=== PATIENT | male | born 1940 | race Caucasian/White ===

== ENCOUNTER 2017-10-06 11:27 | Inpatient (IN) | payer OTHER, MEDICARE ==
[~2017-10-06] VITALS: Ht 188 cm; Wt 98.2 kg
[2017-10-06 11:33] VITALS: Ht 188 cm; Wt 98.2 kg
[2017-10-06 12:36] LABS: PLATELET COUNT 222 x10^3mcL (130-400)
[2017-10-06 12:58] LABS: RED CELL DISTRIBUTION WIDTH 17.3 % (11.5-14.5)
[2017-10-06 13:02] LABS: T3 TOTAL 0.76 ng/mL
[2017-10-06 13:08] LABS: BAND NEUTROPHIL 17 % (0-10); BASOPHIL 0 % (0-2); MONOCYTE 3 % (0-7); PLATELET MORPHOLOGY PLATELETS NORMAL; SEGMENTED NEUTROPHILS 61 % (37-75); ovalocyte/elliptocyte 1+; rbc morphology (normal/abnorm) ABNORMAL (NORMAL); tear drop cell (dacryocyte) 1+
[2017-10-06 13:10] LABS: ERYTHROCYTE SED RATE 61 mm/hr (0-20)
[2017-10-06 13:19] LABS: CALCIUM 8.9 mg/dL (8.5-10.1); CARBON DIOXIDE 30.4 mmol/L (21-32); CHLORIDE SERUM 94 mmol/L (98-107); CREATININE SERUM 1.9 mg/dL (0.7-1.3); GLUCOSE SERUM 128 mg/dL (74-106); POTASSIUM SERUM 3.5 mmol/L (3.5-5.1); SODIUM SERUM 130 mmol/L (136-145)
[2017-10-06 13:24] LABS: FREE T4 1.28 ng/dL (0.76-1.46); FREE THYROXINE INDEX 2.7 ug/dL (1.4-4.5); T4(THYROXINE) 7.8 ug/dL (4.7-13.3)
[2017-10-06 13:26] LABS: ALKALINE PHOSPHATASE 237 U/L (46-116); ALT/SGPT 67 U/L (16-63); AST/SGOT 60 U/L (15-37); BILIRUBIN TOTAL 8.75 mg/dL (0.20-1.00); CK-MB < 0.5 ng/mL (0-3.6); CREATINE KINASE 28 U/L (39-308); TOTAL PROTEIN, SERUM 6.6 g/dL (6.4-8.2)
[2017-10-06 13:28] LABS: ALBUMIN 2.6 g/dL (3.4-5.0); C REACTIVE PROTEIN 15.4 mg/dL (<=0.9)
[2017-10-06 16:08] LABS: MAGNESIUM 2.4 mg/dL (1.8-2.4)
[2017-10-06 16:09] LABS: CHOLESTEROL/HDL RATIO 11.3
[2017-10-06 16:11] VITALS: BP 130/54
[2017-10-06 17:17] VITALS: BP 116/70
[2017-10-06 18:07] VITALS: BP 137/60
[2017-10-06 21:16] VITALS: BP 94/53
[2017-10-07 00:35] LABS: UA SPECIFIC GRAVITY 1.015 (1.005-1.035); microscopic required? YES; urine erythrocyte TRACE (NEGATIVE)
[2017-10-07 01:16] LABS: AMPHETAMINE QUAL UR NONE DETECTED (See below)
[2017-10-07 04:49] VITALS: BP 121/52
[2017-10-07 07:23] LABS: PLATELET COUNT 245 x10^3mcL (130-400)
[2017-10-07 07:33] LABS: RED CELL DISTRIBUTION WIDTH 18.3 % (11.5-14.5)
[2017-10-07 08:20] LABS: ALKALINE PHOSPHATASE 190 U/L (46-116); ALT/SGPT 48 U/L (16-63); AST/SGOT 40 U/L (15-37); BILIRUBIN DIRECT 7.78 mg/dL (0.0-0.2); BILIRUBIN TOTAL 9.44 mg/dL (0.20-1.00); CALCIUM 8.5 mg/dL (8.5-10.1); CARBON DIOXIDE 25.6 mmol/L (21-32); CHLORIDE SERUM 101 mmol/L (98-107); CREATININE SERUM 1.6 mg/dL (0.7-1.3); GLUCOSE SERUM 85 mg/dL (74-106); MAGNESIUM 2.4 mg/dL (1.8-2.4); PHOSPHOROUS 5.1 mg/dL (2.5-4.9); SODIUM SERUM 135 mmol/L (136-145)
[2017-10-07 08:30] LABS: BAND NEUTROPHIL 14 % (0-10); BASOPHIL 0 % (0-2); MONOCYTE 4 % (0-7); PLATELET MORPHOLOGY PLATELETS NORMAL; SEGMENTED NEUTROPHILS 65 % (37-75); ovalocyte/elliptocyte 1+; rbc morphology (normal/abnorm) ABNORMAL (NORMAL); tear drop cell (dacryocyte) 1+
[2017-10-07 08:34] VITALS: BP 147/67
[2017-10-07 08:35] LABS: ALBUMIN 1.9 g/dL (3.4-5.0); TOTAL PROTEIN, SERUM 5.5 g/dL (6.4-8.2)
[2017-10-07 16:36] VITALS: BP 133/66
[2017-10-07 19:37] VITALS: BP 130/58
[2017-10-08 05:00] VITALS: BP 133/62
[2017-10-08 05:42] LABS: PLATELET COUNT 261 x10^3mcL (130-400)
[2017-10-08 06:17] LABS: ALKALINE PHOSPHATASE 145 U/L (46-116); ALT/SGPT 29 U/L (16-63); AST/SGOT 28 U/L (15-37); BILIRUBIN DIRECT 3.72 mg/dL (0.0-0.2); BILIRUBIN TOTAL 4.5 mg/dL (0.20-1.00); CALCIUM 7.6 mg/dL (8.5-10.1); CARBON DIOXIDE 22.4 mmol/L (21-32); CHLORIDE SERUM 102 mmol/L (98-107); CREATININE SERUM 1.5 mg/dL (0.7-1.3); GLUCOSE SERUM 106 mg/dL (74-106); MAGNESIUM 2.3 mg/dL (1.8-2.4); PHOSPHOROUS 3.8 mg/dL (2.5-4.9); SODIUM SERUM 134 mmol/L (136-145)
[2017-10-08 06:26] LABS: ALBUMIN 1.5 g/dL (3.4-5.0)
[2017-10-08 07:26] LABS: RED CELL DISTRIBUTION WIDTH 18.6 % (11.5-14.5)
[2017-10-08 08:00] VITALS: BP 115/52
[2017-10-08 12:38] VITALS: BP 104/60
[2017-10-08 15:38] LABS: BAND NEUTROPHIL 14 % (0-10); MONOCYTE 1 % (0-7); SEGMENTED NEUTROPHILS 79 % (37-75); rbc morphology (normal/abnorm) ABNORMAL (NORMAL)
[2017-10-08 15:39] LABS: PLATELET MORPHOLOGY PLATELETS NORMAL
[2017-10-08 15:40] LABS: ERYTHROCYTE SED RATE 75 mm/hr (0-20)
[2017-10-08 16:29] VITALS: BP 102/71
[2017-10-08 16:31] VITALS: BP 121/64
[2017-10-08 21:16] VITALS: BP 121/67
[2017-10-09 05:57] VITALS: BP 142/62
[2017-10-09 06:14] LABS: PLATELET COUNT 277 x10^3mcL (130-400)
[2017-10-09 06:29] LABS: ALKALINE PHOSPHATASE 137 U/L (46-116); ALT/SGPT 29 U/L (16-63); AST/SGOT 32 U/L (15-37); BILIRUBIN DIRECT 2.07 mg/dL (0.0-0.2); BILIRUBIN TOTAL 2.94 mg/dL (0.20-1.00); CALCIUM 8.3 mg/dL (8.5-10.1); CARBON DIOXIDE 25.3 mmol/L (21-32); CHLORIDE SERUM 99 mmol/L (98-107); CREATININE SERUM 1.3 mg/dL (0.7-1.3); GLUCOSE SERUM 113 mg/dL (74-106); PHOSPHOROUS 2.6 mg/dL (2.5-4.9); POTASSIUM SERUM 3.7 mmol/L (3.5-5.1); SODIUM SERUM 132 mmol/L (136-145)
[2017-10-09 06:35] LABS: ALBUMIN 1.4 g/dL (3.4-5.0); TOTAL PROTEIN, SERUM 5.1 g/dL (6.4-8.2)
[2017-10-09 07:05] LABS: RED CELL DISTRIBUTION WIDTH 18.5 % (11.5-14.5)
[2017-10-09 08:07] LABS: ATYPICAL LYMPH 2 %; BAND NEUTROPHIL 5 % (0-10); BASOPHIL 0 % (0-2); MONOCYTE 1 % (0-7); SEGMENTED NEUTROPHILS 84 % (37-75)
[2017-10-09 08:08] LABS: PLATELET MORPHOLOGY PLATELETS NORMAL; rbc morphology (normal/abnorm) ABNORMAL (NORMAL)
[2017-10-09 08:14] VITALS: BP 137/80
[2017-10-09 12:15] VITALS: BP 132/62
[2017-10-09 16:17] VITALS: BP 127/66
[2017-10-09 21:22] VITALS: BP 124/62
[2017-10-10 06:15] VITALS: BP 146/61
[2017-10-10 06:51] LABS: PLATELET COUNT 307 x10^3mcL (130-400)
[2017-10-10 06:56] LABS: ALKALINE PHOSPHATASE 156 U/L (46-116); ALT/SGPT 38 U/L (16-63); AST/SGOT 47 U/L (15-37); BILIRUBIN DIRECT 2.03 mg/dL (0.0-0.2); BILIRUBIN TOTAL 2.75 mg/dL (0.20-1.00); CALCIUM 8.2 mg/dL (8.5-10.1); CARBON DIOXIDE 26.5 mmol/L (21-32); CHLORIDE SERUM 99 mmol/L (98-107); CREATININE SERUM 1.3 mg/dL (0.7-1.3); GLUCOSE SERUM 116 mg/dL (74-106); PHOSPHOROUS 3.1 mg/dL (2.5-4.9); POTASSIUM SERUM 3.4 mmol/L (3.5-5.1); SODIUM SERUM 133 mmol/L (136-145)
[2017-10-10 06:57] LABS: RED CELL DISTRIBUTION WIDTH 18.5 % (11.5-14.5)
[2017-10-10 07:01] LABS: ALBUMIN 1.5 g/dL (3.4-5.0); TOTAL PROTEIN, SERUM 5.2 g/dL (6.4-8.2)
[2017-10-10 10:05] VITALS: BP 142/60
[2017-10-10 10:47] LABS: ATYPICAL LYMPH 2 %; BAND NEUTROPHIL 6 % (0-10); BASOPHIL 0 % (0-2); MONOCYTE 5 % (0-7); PLATELET MORPHOLOGY PLATELETS NORMAL; SEGMENTED NEUTROPHILS 77 % (37-75); rbc morphology (normal/abnorm) ABNORMAL (NORMAL)
[2017-10-10 10:48] LABS: burr cell (echinocyte) 1+
[2017-10-10 17:51] VITALS: BP 148/57
[2017-10-10 22:26] VITALS: BP 150/68
[2017-10-11] VITALS (7 sets, daily range): BP systolic 122–153; BP diastolic 40–70
[2017-10-11 05:31] LABS: CALCIUM 7.8 mg/dL (8.5-10.1); CARBON DIOXIDE 25.8 mmol/L (21-32); CHLORIDE SERUM 100 mmol/L (98-107); CREATININE SERUM 1.3 mg/dL (0.7-1.3); GLUCOSE SERUM 155 mg/dL (74-106); POTASSIUM SERUM 3.9 mmol/L (3.5-5.1); SODIUM SERUM 133 mmol/L (136-145)
[2017-10-11 05:35] LABS: PLATELET COUNT 361 x10^3mcL (130-400)
[2017-10-11 05:36] LABS: RED CELL DISTRIBUTION WIDTH 18.5 % (11.5-14.5)
[2017-10-11 05:54] LABS: BAND NEUTROPHIL 2 % (0-10); METAMYELOCTE 1 % (0-2); MONOCYTE 10 % (0-7); SEGMENTED NEUTROPHILS 72 % (37-75)
[2017-10-11 05:55] LABS: PLATELET MORPHOLOGY LARGE PLATELET SEEN; rbc morphology (normal/abnorm) ABNORMAL (NORMAL)
[2017-10-12 05:45] VITALS: BP 140/60
[2017-10-12 08:23] LABS: PLATELET COUNT 408 x10^3mcL (130-400); RED CELL DISTRIBUTION WIDTH 18.9 % (11.5-14.5)
[2017-10-12 08:47] LABS: CALCIUM 7.9 mg/dL (8.5-10.1); CARBON DIOXIDE 26.1 mmol/L (21-32); CHLORIDE SERUM 100 mmol/L (98-107); CREATININE SERUM 1.4 mg/dL (0.7-1.3); GLUCOSE SERUM 153 mg/dL (74-106); PHOSPHOROUS 3.4 mg/dL (2.5-4.9); POTASSIUM SERUM 3.7 mmol/L (3.5-5.1); SODIUM SERUM 135 mmol/L (136-145); TRIGLYCERIDES 145 mg/dL (<150)
[2017-10-12 09:04] LABS: CHOLESTEROL 95 mg/dL (<200); CHOLESTEROL/HDL RATIO 7.9; HDL CHOLESTEROL 12 mg/dL (40-60)
[2017-10-12 09:40] VITALS: BP 148/56
[2017-10-12 10:27] LABS: BAND NEUTROPHIL 13 % (0-10); BASOPHIL 0 % (0-2); METAMYELOCTE 2 % (0-2); MONOCYTE 11 % (0-7); SEGMENTED NEUTROPHILS 66 % (37-75); rbc morphology (normal/abnorm) ABNORMAL (NORMAL); tear drop cell (dacryocyte) 1+
[2017-10-12 10:28] LABS: PLATELET MORPHOLOGY GIANT PLATELET SEEN
[2017-10-12 12:45] VITALS: BP 139/62
[2017-10-12] MEDS ORDERED: FUROSEMIDE20 MG PO (15:54)
[2017-10-12] MEDS ORDERED: ATORVASTATIN CA20 M1 PO (15:57)
[2017-10-12] MEDS ORDERED: NOR10 PO (15:58)
[2017-10-12] MEDS ORDERED: IBUPROFEN400 MG PO (15:58)
[2017-10-12] MEDS ORDERED: GOOD SENSE ASPI81 M3 PO (16:33)
[2017-10-12 17:46] VITALS: BP 148/44
[2017-10-12 21:38] VITALS: BP 140/59
[2017-10-13 05:24] VITALS: BP 154/54
[2017-10-13 07:39] LABS: PLATELET COUNT 393 x10^3mcL (130-400)
[2017-10-13 07:46] LABS: RED CELL DISTRIBUTION WIDTH 18.8 % (11.5-14.5)
[2017-10-13 08:08] LABS: ALKALINE PHOSPHATASE 117 U/L (46-116); ALT/SGPT 33 U/L (16-63); AST/SGOT 36 U/L (15-37); BILIRUBIN TOTAL 1.72 mg/dL (0.20-1.00); CALCIUM 7.7 mg/dL (8.5-10.1); CARBON DIOXIDE 29.1 mmol/L (21-32); CHLORIDE SERUM 100 mmol/L (98-107); CREATININE SERUM 1.2 mg/dL (0.7-1.3); GLUCOSE SERUM 130 mg/dL (74-106); POTASSIUM SERUM 3.3 mmol/L (3.5-5.1); SODIUM SERUM 136 mmol/L (136-145)
[2017-10-13 08:14] LABS: ALBUMIN 1.4 g/dL (3.4-5.0); TOTAL PROTEIN, SERUM 4.8 g/dL (6.4-8.2)
[2017-10-13 08:27] LABS: BAND NEUTROPHIL 2 % (0-10); METAMYELOCTE 2 % (0-2); MONOCYTE 4 % (0-7); SEGMENTED NEUTROPHILS 83 % (37-75); rbc morphology (normal/abnorm) NORMAL (NORMAL)
[2017-10-13 08:36] VITALS: BP 149/59
[2017-10-13 13:26] VITALS: BP 140/58
[2017-10-13 17:38] VITALS: BP 152/58
[2017-10-13 20:53] VITALS: BP 132/60
[2017-10-14 05:46] VITALS: BP 147/54
[2017-10-14 07:50] LABS: BASOPHIL % 0.2 % (0-2)
[2017-10-14 07:54] LABS: CARBON DIOXIDE 29.8 mmol/L (21-32); CHLORIDE SERUM 99 mmol/L (98-107); CREATININE SERUM 1.2 mg/dL (0.7-1.3); GLUCOSE SERUM 123 mg/dL (74-106); POTASSIUM SERUM 3.5 mmol/L (3.5-5.1); SODIUM SERUM 134 mmol/L (136-145)
[2017-10-14 08:07] LABS: PLATELET COUNT 445 x10^3mcL (130-400); RED CELL DISTRIBUTION WIDTH 18.3 % (11.5-14.5)
[2017-10-14 09:02] LABS: BAND NEUTROPHIL 2 % (0-10); BASOPHIL 0 % (0-2); METAMYELOCTE 2 % (0-2); MONOCYTE 5 % (0-7); SEGMENTED NEUTROPHILS 80 % (37-75)
[2017-10-14 09:03] LABS: PLATELET MORPHOLOGY PLATELETS INCREASED; rbc morphology (normal/abnorm) ABNORMAL (NORMAL)
[2017-10-14 09:05] VITALS: BP 146/59
[2017-10-14 14:42] VITALS: BP 153/56
[2017-10-14 21:55] VITALS: BP 132/54
[2017-10-15 05:25] VITALS: BP 133/55
[2017-10-15 07:27] LABS: BASOPHIL % 0.3 % (0-2)
[2017-10-15 07:29] LABS: CALCIUM 7.9 mg/dL (8.5-10.1); CARBON DIOXIDE 29.4 mmol/L (21-32); CHLORIDE SERUM 98 mmol/L (98-107); CREATININE SERUM 1.2 mg/dL (0.7-1.3); GLUCOSE SERUM 92 mg/dL (74-106); POTASSIUM SERUM 3.8 mmol/L (3.5-5.1); SODIUM SERUM 132 mmol/L (136-145)
[2017-10-15 07:38] LABS: PLATELET COUNT 470 x10^3mcL (130-400); RED CELL DISTRIBUTION WIDTH 18.4 % (11.5-14.5)
[2017-10-15 08:44] VITALS: BP 136/80
[2017-10-15 13:08] VITALS: BP 139/54
[2017-10-15 17:19] VITALS: BP 111/58
[2017-10-15 20:48] VITALS: BP 128/46
[2017-10-16] VITALS (7 sets, daily range): BP systolic 130–162; BP diastolic 54–68
[2017-10-16 07:56] LABS: BASOPHIL % 0.2 % (0-2)
[2017-10-16 07:59] LABS: CALCIUM 8.1 mg/dL (8.5-10.1); CARBON DIOXIDE 25.5 mmol/L (21-32); CHLORIDE SERUM 98 mmol/L (98-107); CREATININE SERUM 1.4 mg/dL (0.7-1.3); GLUCOSE SERUM 110 mg/dL (74-106); PLATELET COUNT 506 x10^3mcL (130-400); RED CELL DISTRIBUTION WIDTH 18.2 % (11.5-14.5); SODIUM SERUM 133 mmol/L (136-145)
[2017-10-17 05:19] VITALS: BP 149/53
[2017-10-17 07:35] LABS: BASOPHIL % 0.3 % (0-2)
[2017-10-17 07:44] LABS: PLATELET COUNT 478 x10^3mcL (130-400); RED CELL DISTRIBUTION WIDTH 18.7 % (11.5-14.5)
[2017-10-17 08:00] LABS: CALCIUM 8.3 mg/dL (8.5-10.1); CARBON DIOXIDE 26.4 mmol/L (21-32); CHLORIDE SERUM 99 mmol/L (98-107); CREATININE SERUM 1.4 mg/dL (0.7-1.3); GLUCOSE SERUM 112 mg/dL (74-106); POTASSIUM SERUM 4.1 mmol/L (3.5-5.1); SODIUM SERUM 135 mmol/L (136-145)
[2017-10-17 08:30] VITALS: BP 146/49
[2017-10-17 14:56] VITALS: BP 124/56
[2017-10-17 21:15] VITALS: BP 90/54
[2017-10-17 21:34] VITALS: BP 110/64
[2017-10-18 06:33] LABS: BASOPHIL % 0.7 % (0-2)
[2017-10-18 06:37] VITALS: BP 107/46
[2017-10-18 06:42] LABS: CALCIUM 8.1 mg/dL (8.5-10.1); CARBON DIOXIDE 25.7 mmol/L (21-32); CHLORIDE SERUM 99 mmol/L (98-107); CREATININE SERUM 1.4 mg/dL (0.7-1.3); GLUCOSE SERUM 114 mg/dL (74-106); POTASSIUM SERUM 3.9 mmol/L (3.5-5.1); SODIUM SERUM 132 mmol/L (136-145)
[2017-10-18 07:45] LABS: PLATELET COUNT 438 x10^3mcL (130-400); RED CELL DISTRIBUTION WIDTH 18.7 % (11.5-14.5)
[2017-10-18 09:07] VITALS: BP 123/47
[2017-10-18 13:54] VITALS: BP 115/53
[2017-10-18 16:30] VITALS: BP 125/45
[2017-10-18 21:07] VITALS: BP 130/45
[2017-10-19 05:56] VITALS: BP 118/46
[2017-10-19 06:47] LABS: BASOPHIL % 0.4 % (0-2); PLATELET COUNT 392 x10^3mcL (130-400)
[2017-10-19 06:55] LABS: RED CELL DISTRIBUTION WIDTH 18.4 % (11.5-14.5)
[2017-10-19 09:36] VITALS: BP 92/41
[2017-10-19 12:31] LABS: ALKALINE PHOSPHATASE 130 U/L (46-116); ALT/SGPT 59 U/L (16-63); AST/SGOT 34 U/L (15-37); BILIRUBIN DIRECT 0.83 mg/dL (0.0-0.2); BILIRUBIN TOTAL 1.2 mg/dL (0.20-1.00)
[2017-10-19 12:32] LABS: ALBUMIN 1.8 g/dL (3.4-5.0); TOTAL PROTEIN, SERUM 5.9 g/dL (6.4-8.2)
[2017-10-19 13:53] LABS: CALCIUM 8.4 mg/dL (8.5-10.1); CARBON DIOXIDE 25.2 mmol/L (21-32); CHLORIDE SERUM 98 mmol/L (98-107); CREATININE SERUM 1.3 mg/dL (0.7-1.3); GLUCOSE SERUM 82 mg/dL (74-106); POTASSIUM SERUM 4.4 mmol/L (3.5-5.1); SODIUM SERUM 131 mmol/L (136-145)
[2017-10-19 14:00] VITALS: BP 116/50
[2017-10-19 16:52] VITALS: BP 119/43
[2017-10-19 20:48] VITALS: BP 129/51
[2017-10-20 05:33] VITALS: BP 143/56
[2017-10-20 07:26] LABS: BASOPHIL % 0.3 % (0-2); PLATELET COUNT 361 x10^3mcL (130-400)
[2017-10-20 07:28] LABS: RED CELL DISTRIBUTION WIDTH 17.9 % (11.5-14.5)
[2017-10-20 09:03] VITALS: BP 112/38
[2017-10-20 13:43] VITALS: BP 140/49
[2017-10-20 17:38] VITALS: BP 125/42
[2017-10-20 20:26] VITALS: BP 129/49
[2017-10-21 04:32] VITALS: BP 138/61
[2017-10-21 09:08] VITALS: BP 119/50
[2017-10-21 09:48] LABS: CALCIUM 7.9 mg/dL (8.5-10.1); CHLORIDE SERUM 95 mmol/L (98-107); CREATININE SERUM 1.5 mg/dL (0.7-1.3); GLUCOSE SERUM 110 mg/dL (74-106); POTASSIUM SERUM 4.7 mmol/L (3.5-5.1); SODIUM SERUM 131 mmol/L (136-145)
[2017-10-21 13:26] LABS: BASOPHIL % 0.8 % (0-2)
[2017-10-21 13:28] LABS: PLATELET COUNT 423 x10^3mcL (130-400); RED CELL DISTRIBUTION WIDTH 17.8 % (11.5-14.5)
[2017-10-21 13:53] VITALS: BP 114/59
[2017-10-21 18:26] VITALS: BP 123/52
[2017-10-21 20:11] VITALS: BP 124/40
[2017-10-22 05:20] VITALS: BP 126/53
[2017-10-22 05:59] LABS: BASOPHIL % 0.5 % (0-2); PLATELET COUNT 373 x10^3mcL (130-400)
[2017-10-22 06:13] LABS: RED CELL DISTRIBUTION WIDTH 17.7 % (11.5-14.5)
[2017-10-22 08:43] VITALS: BP 111/48
[2017-10-22 09:19] LABS: CALCIUM 8.1 mg/dL (8.5-10.1); CARBON DIOXIDE 27.5 mmol/L (21-32); CHLORIDE SERUM 93 mmol/L (98-107); CREATININE SERUM 1.5 mg/dL (0.7-1.3); GLUCOSE SERUM 129 mg/dL (74-106); POTASSIUM SERUM 4.4 mmol/L (3.5-5.1); SODIUM SERUM 126 mmol/L (136-145)
[2017-10-22 09:23] LABS: ALBUMIN 1.7 g/dL (3.4-5.0); ALKALINE PHOSPHATASE 212 U/L (46-116); ALT/SGPT 120 U/L (16-63); AST/SGOT 138 U/L (15-37); BILIRUBIN DIRECT 0.79 mg/dL (0.0-0.2); BILIRUBIN TOTAL 0.96 mg/dL (0.20-1.00); MAGNESIUM 2.2 mg/dL (1.8-2.4); TOTAL PROTEIN, SERUM 6.5 g/dL (6.4-8.2); URIC ACID 3.9 mg/dL (3.5-7.2)
[2017-10-22 13:40] VITALS: BP 112/60
[2017-10-22 17:26] VITALS: BP 100/67
[2017-10-22 21:12] VITALS: BP 127/50
[2017-10-23 05:20] VITALS: BP 133/49
[2017-10-23 05:35] LABS: ALBUMIN 1.6 g/dL (3.4-5.0); ALKALINE PHOSPHATASE 249 U/L (46-116); ALT/SGPT 183 U/L (16-63); AST/SGOT 220 U/L (15-37); BILIRUBIN TOTAL 0.9 mg/dL (0.20-1.00); CALCIUM 7.9 mg/dL (8.5-10.1); CARBON DIOXIDE 26.2 mmol/L (21-32); CHLORIDE SERUM 96 mmol/L (98-107); CREATININE SERUM 1.2 mg/dL (0.7-1.3); GLUCOSE SERUM 96 mg/dL (74-106); MAGNESIUM 2.3 mg/dL (1.8-2.4); PHOSPHOROUS 4.3 mg/dL (2.5-4.9); POTASSIUM SERUM 4.7 mmol/L (3.5-5.1); SODIUM SERUM 129 mmol/L (136-145); TOTAL PROTEIN, SERUM 6.4 g/dL (6.4-8.2)
[2017-10-23 08:37] VITALS: BP 102/43
[2017-10-23 12:30] VITALS: BP 126/50
[2017-10-23 16:39] VITALS: BP 137/61
[2017-10-23 21:24] VITALS: BP 140/49
[2017-10-24 04:10] LABS: BASOPHIL % 0.8 % (0-2)
[2017-10-24 04:14] LABS: CALCIUM 8.2 mg/dL (8.5-10.1); CHLORIDE SERUM 97 mmol/L (98-107); CREATININE SERUM 1.3 mg/dL (0.7-1.3); GLUCOSE SERUM 95 mg/dL (74-106); POTASSIUM SERUM 4.3 mmol/L (3.5-5.1); SODIUM SERUM 130 mmol/L (136-145)
[2017-10-24 04:36] LABS: PLATELET COUNT 446 x10^3mcL (130-400); RED CELL DISTRIBUTION WIDTH 17.2 % (11.5-14.5)
[2017-10-24 05:40] VITALS: BP 133/53
[2017-10-24 10:09] VITALS: BP 128/69
[2017-10-24 13:53] VITALS: BP 11/49
[2017-10-24 17:25] VITALS: BP 143/55
[2017-10-24 21:35] VITALS: BP 142/58
[2017-10-25 05:30] VITALS: BP 146/58
[2017-10-25 06:32] LABS: BASOPHIL % 0.2 % (0-2)
[2017-10-25 06:38] LABS: CALCIUM 8.8 mg/dL (8.5-10.1); CARBON DIOXIDE 23.9 mmol/L (21-32); CHLORIDE SERUM 96 mmol/L (98-107); CREATININE SERUM 1.4 mg/dL (0.7-1.3); GLUCOSE SERUM 216 mg/dL (74-106); MAGNESIUM 2.3 mg/dL (1.8-2.4); PHOSPHOROUS 4.5 mg/dL (2.5-4.9); POTASSIUM SERUM 4.7 mmol/L (3.5-5.1); SODIUM SERUM 128 mmol/L (136-145)
[2017-10-25 06:46] LABS: PLATELET COUNT 466 x10^3mcL (130-400); RED CELL DISTRIBUTION WIDTH 17.4 % (11.5-14.5)
[2017-10-25 08:05] LABS: BILIRUBIN DIRECT 0.59 mg/dL (0.0-0.2); BILIRUBIN TOTAL 0.8 mg/dL (0.20-1.00); TOTAL PROTEIN, SERUM 6.5 g/dL (6.4-8.2)
[2017-10-25 08:08] LABS: ALBUMIN 1.6 g/dL (3.4-5.0)
[2017-10-25 09:29] VITALS: BP 131/51
[2017-10-25 12:35] VITALS: BP 134/59
[2017-10-25 17:25] VITALS: BP 151/56
[2017-10-25 19:30] VITALS: BP 125/65
[2017-10-26 06:11] VITALS: BP 134/55
[2017-10-26 09:16] VITALS: BP 132/54
[2017-10-26] MEDS ORDERED: ELA10 PO (14:22)
[2017-10-26] MEDS ORDERED: LIPI20 PO (14:22)
[2017-10-26] MEDS ORDERED: NOR10 PO (14:22)
[2017-10-26] MEDS ORDERED: FLO4 PO (14:22)
[2017-10-26] MEDS ORDERED: CIPRO500 MG PO (14:23)
[2017-10-26 15:37] VITALS: BP 132/54
[2017-10-26 16:28] VITALS: BP 125/38
[2017-10-26 17:30] VITALS: BP 132/57
[2017-10-26 17:34] VITALS: BP 145/83
== END 2017-10-26 18:06 | DRG 853 ==
LOC: ED 11:27 → DU 14:40 → IC 14:40 → DU 15:24 → IC 10-10 22:19 → DU 10-11 15:14
PROVIDERS: Family Medicine; Internal Medicine Gastroenterology; Specialist; Surgery
PROC: 0F798DZ Dilation of Common Bile Duct with Intraluminal Device, Via Natural or Artificial Opening Endoscopic (ICD-10-PCS; principal; 2017-10-07 09:00)
PROC: BF10YZZ Fluoroscopy of Bile Ducts using Other Contrast (ICD-10-PCS; 2017-10-07 09:00)
PROC: 0W9F30Z Drainage of Abdominal Wall with Drainage Device, Percutaneous Approach (ICD-10-PCS; 2017-10-10)
PROC: 0W9G0ZZ Drainage of Peritoneal Cavity, Open Approach (ICD-10-PCS; 2017-10-11)
PROC: 0W9F30Z Drainage of Abdominal Wall with Drainage Device, Percutaneous Approach (ICD-10-PCS; 2017-10-19)
DX: A41.9 Sepsis, unspecified organism (principal); N17.0 Acute kidney failure with tubular necrosis; E43 Unspecified severe protein-calorie malnutrition; K65.1 Peritoneal abscess; K65.3 Choleperitonitis; J98.11 Atelectasis; E87.1 Hypo-osmolality and hyponatremia; T81.31XA Disruption of external operation (surgical) wound, not elsewhere classified, initial encounter; T81.4XXA Infection following a procedure, initial encounter; E86.0 Dehydration; R65.20 Severe sepsis without septic shock; R09.02 Hypoxemia; K59.00 Constipation, unspecified; I10 Essential (primary) hypertension; E78.1 Pure hyperglyceridemia; D47.3 Essential (hemorrhagic) thrombocythemia
CPT/HCPCS: 32557; 36600; 43262; 82962; 83880; 84439; 94150; 97110-GP; 97116-GP; 97530-GP; C1729; C1769; C1887; C2625; J0330; J0744; J1610; J1644; J1650; J1885; J1940; J1956; J2001; J2175; J2250; J2270; J2405; J2543; J2704; J2997; J3010; J3301; J3370; J3475; J3480; J3490; J7030; J7040; J7042; J7050; J7120; J7131; Q0092; Q0162; Q9966; Q9967

== ENCOUNTER 2018-06-08 08:47 | Emergency (ER) | payer OTHER, MEDICARE ==
[~2018-06-08 08:47] MED LIST: ATORVASTATIN CA20 M1 PO; CIPRO500 MG PO; ELA10 PO; FLO4 PO; FUROSEMIDE20 MG PO; GOOD SENSE ASPI81 M3 PO; IBUPROFEN400 MG PO; LIPI20 PO; NOR10 PO
[2018-06-08 09:52] LABS: BASOPHIL % 0.4 % (0-2); PLATELET COUNT 246 x10^3mcL (130-400)
[2018-06-08 09:57] LABS: CALCIUM 8.7 mg/dL (8.5-10.1); CARBON DIOXIDE 28.2 mmol/L (21-32); CHLORIDE SERUM 105 mmol/L (98-107); GLUCOSE SERUM 106 mg/dL (74-106); POTASSIUM SERUM 4.4 mmol/L (3.5-5.1); SODIUM SERUM 139 mmol/L (136-145)
[2018-06-08 10:00] LABS: ALBUMIN 3.5 g/dL (3.4-5.0); ALKALINE PHOSPHATASE 74 U/L (46-116); ALT/SGPT 34 U/L (16-63); AST/SGOT 19 U/L (15-37); BILIRUBIN TOTAL 0.61 mg/dL (0.20-1.00); CHOLESTEROL 109 mg/dL (<200); CHOLESTEROL/HDL RATIO 3.5; HDL CHOLESTEROL 31 mg/dL (40-60); LIPASE 127 IU/L (73-393); TOTAL PROTEIN, SERUM 6.6 g/dL (6.4-8.2); TRIGLYCERIDES 91 mg/dL (<150)
[2018-06-08 10:04] LABS: RED CELL DISTRIBUTION WIDTH 14.9 % (11.5-14.5)
[2018-06-08 10:08] LABS: microscopic required? YES; urine erythrocyte 2+ (NEGATIVE)
[2018-06-08 10:12] LABS: FREE T4 0.77 ng/dL (0.76-1.46); FREE THYROXINE INDEX 1.8 ug/dL (1.4-4.5); T4(THYROXINE) 5.8 ug/dL (4.7-13.3)
[2018-06-08 10:26] LABS: T3 TOTAL 0.94 ng/mL
[2018-06-08 11:37] VITALS: BP 144/67
== END 2018-06-08 11:37 | disposition home or self-care (01) ==
LOC: ED 08:47
PROVIDERS: Specialist
DX: R10.32 Left lower quadrant pain (principal); R31.29 Other microscopic hematuria; I10 Essential (primary) hypertension; Z90.49 Acquired absence of other specified parts of digestive tract; Z88.1 Allergy status to other antibiotic agents; Z88.2 Allergy status to sulfonamides
CPT/HCPCS: 83880; 84439; J1885; J2405; J3010; J7030; Q0092

== ENCOUNTER 2019-11-13 10:38 | Emergency (ER) | payer OTHER, MEDICARE ==
[~2019-11-13] VITALS: Ht 188 cm; Wt 89.8 kg
[2019-11-13 11:37] LABS: BASOPHIL % 0.4 % (0-2); PLATELET COUNT 244 x10^3mcL (130-400); RED CELL DISTRIBUTION WIDTH 12.6 % (11.5-14.5)
[2019-11-13 12:00] LABS: CALCIUM 8.6 mg/dL (8.5-10.1); CARBON DIOXIDE 25.6 mmol/L (21-32); CHLORIDE SERUM 99 mmol/L (98-107); GLUCOSE SERUM 104 mg/dL (74-106); SODIUM SERUM 133 mmol/L (136-145)
[2019-11-13 12:12] LABS: ALBUMIN 3.5 g/dL (3.4-5.0); ALKALINE PHOSPHATASE 90 U/L (46-116); ALT/SGPT 39 U/L (16-63); AMYLASE 55 U/L (25-115); AST/SGOT 24 U/L (15-37); BILIRUBIN TOTAL 0.9 mg/dL (0.20-1.00); LIPASE 80 IU/L (73-393); TOTAL PROTEIN, SERUM 6.8 g/dL (6.4-8.2)
[2019-11-13 13:04] VITALS: BP 108/62
== END 2019-11-13 13:00 | disposition home or self-care (01) ==
LOC: ED 10:38
PROVIDERS: Emergency Medicine
DX: A08.4 Viral intestinal infection, unspecified (principal); I10 Essential (primary) hypertension; E78.00 Pure hypercholesterolemia, unspecified; Z90.49 Acquired absence of other specified parts of digestive tract; Z88.2 Allergy status to sulfonamides; Z88.1 Allergy status to other antibiotic agents

== ENCOUNTER 2020-03-02 06:30 | Emergency (ER) | payer OTHER, MEDICARE ==
[~2020-03-02] VITALS: Ht 182.9 cm; Wt 94.3 kg
[2020-03-02 08:57] LABS: BASOPHIL % 0.4 % (0.2-1.5); PLATELET COUNT 251 x10^3mcL (152-348); RED CELL DISTRIBUTION WIDTH 12.6 % (12.1-16.2)
[2020-03-02 09:09] LABS: CARBON DIOXIDE 26.3 mmol/L (21-32); CHLORIDE SERUM 100 mmol/L (98-107); GLUCOSE SERUM 120 mg/dL (74-106); POTASSIUM SERUM 4.2 mmol/L (3.5-5.1); SODIUM SERUM 137 mmol/L (136-145)
[2020-03-02 09:13] LABS: ALKALINE PHOSPHATASE 83 U/L (46-116); ALT/SGPT 32 U/L (16-63); AST/SGOT 21 U/L (15-37); BILIRUBIN TOTAL 0.8 mg/dL (0.20-1.00); HDL CHOLESTEROL 37 mg/dL (40-60); TOTAL PROTEIN, SERUM 7.4 g/dL (6.4-8.2); TRIGLYCERIDES 107 mg/dL (<150)
[2020-03-02 09:21] LABS: CHOLESTEROL 124 mg/dL (<200); CHOLESTEROL/HDL RATIO 3.4
[2020-03-02 10:10] LABS: UA SPECIFIC GRAVITY 1.025 (1.005-1.035); microscopic required? YES; urine erythrocyte TRACE (NEGATIVE)
[2020-03-02 10:37] LABS: rbc morphology (normal/abnorm) NORMAL (NORMAL)
[2020-03-02 11:56] VITALS: BP 130/70
== END 2020-03-02 11:56 | disposition home or self-care (01) ==
LOC: ED 06:30
PROVIDERS: Specialist
DX: K40.90 Unilateral inguinal hernia, without obstruction or gangrene, not specified as recurrent (principal); I12.9 Hypertensive chronic kidney disease with stage 1 through stage 4 chronic kidney disease, or unspecified chronic kidney disease; N18.9 Chronic kidney disease, unspecified; E78.00 Pure hypercholesterolemia, unspecified; Z88.2 Allergy status to sulfonamides; Z88.1 Allergy status to other antibiotic agents; Z88.8 Allergy status to other drugs, medicaments and biological substances; Z90.49 Acquired absence of other specified parts of digestive tract
CPT/HCPCS: 36415; J7030